=== PATIENT | male | born 1945 | race Caucasian/White ===

== ENCOUNTER → 2017-08-21 | Outpatient (CLI) | payer MEDICARE, OTHER ==
[2017-08-21 11:03] LABS: ADD MAN DIFF? NO
[2017-08-21 11:07] LABS: BASO % 1 % (0-3); EOS # 0.4 x10^3/uL (0.0-0.7); EOS % 5 % (0-3); LYMPH # 1.4 x10^3/uL (1.0-4.8); LYMPH % 19 % (24-48); MEAN CORPUSCULAR HEMOGLOBIN 28 pg (25-35); MEAN CORPUSCULAR HGB CONC 34 g/dL (31-37); MEAN CORPUSCULAR VOLUME 83 fL (79-100); MONO # 0.5 x10^3/uL (0.0-1.1); MONO % 8 % (0-9); NEUT # 4.9 x10^3uL (1.8-7.7); NEUT % 67 % (31-73); PLATELET COUNT 178 x10^3/uL (140-400); RED BLOOD COUNT 5.63 x10^6/uL (4.30-5.70); RED CELL DISTRIBUTION WIDTH 14.4 % (11.5-14.5); WHITE BLOOD COUNT 7.2 x10^3/uL (4.0-11.0)
[2017-08-21 11:19] LABS: PARTIAL THROMBOPLASTIN TIME 29 SEC (24-38); PROTHROMBIN TIME PATIENT 12.5 SEC (11.7-14.0)
[2017-08-21 11:29] LABS: ALBUMIN 3.9 g/dL (3.4-5.0); ALBUMIN/GLOBULIN RATIO 1.4 (1.0-1.7); ALK PHOS 97 U/L (46-116); ALT (SGPT) 23 U/L (16-63); ANION GAP 5 (6-14); AST (SGOT) 13 U/L (15-37); BLOOD UREA NITROGEN 17 mg/dL (8-26); BUN/CREATININE RATIO 17 (6-20); CALCIUM 9.2 mg/dL (8.5-10.1); CARBON DIOXIDE 29 mmol/L (21-32); CHLORIDE 107 mmol/L (98-107); GFR 73.9; GLUCOSE 97 mg/dL (70-99); POTASSIUM 4.2 mmol/L (3.5-5.1); SODIUM 141 mmol/L (136-145); TOTAL BILIRUBIN 0.5 mg/dL (0.2-1.0); TOTAL PROTEIN 6.7 g/dL (6.4-8.2)
[2017-08-21 22:11] LABS: MRSA BY PCR Negative (Negative)
== END | disposition home or self-care (01) ==
LOC: SURGPAT 10:28
DX: Z01.818 Encounter for other preprocedural examination (principal); M48.061 Spinal stenosis, lumbar region without neurogenic claudication; M54.16 Radiculopathy, lumbar region
CPT/HCPCS: 36415; 80053; 85025; 85610; 85730; 87641; 93005

== ENCOUNTER 2017-08-28 07:42 | Inpatient (IN) | payer MEDICARE ==
[~2017-08-28 07:42] MED LIST: BACITRACIN 50,000 UNIT in IV NORMAL SALINE 1000ML BAG 1,000 ML IRR; BUPIVAC MPF-EPI 0.5%-1:200000 30 ML VIAL. INJ; LIDOCAINE 1% PF 2 ML VIAL. ID; MORPHINE SULFATE 2 MG/ML DISP.SYRIN. IV; ONDANSETRON PF 4 MG/2 ML VIAL. IV; PROCHLORPERAZINE 10 MG/2 ML VIAL. IV; fentaNYL PF VIAL 100 MCG/2 ML VIAL IV
[2017-08-28] MEDS ORDERED: SCOPOLAMINE 1.5MG PATCH. TD (08:14)
[2017-08-28] MEDS: IV RINGERS,LACTATED 1000ML 1,000 ML IV (08:18)
[2017-08-28] MEDS: SCOPOLAMINE 1.5MG PATCH. TD (08:20)
[2017-08-28] MEDS ORDERED: REMIFENTANIL 2 MG VIAL. IV (10:20)
[2017-08-28] MEDS ORDERED: ROCURONIUM 50 MG/5 ML VIAL. (10:20)
[2017-08-28] MEDS ORDERED: fentaNYL PF VIAL 250 MCG/5 ML VIAL (10:21)
[2017-08-28] MEDS ORDERED: MINERAL OIL/PETROLATUM,WHITE OPHTH OINT 3.5GM TUBE. ×3 (10:21)
[2017-08-28] MEDS ORDERED: PHENYLEPHRINE 10 MG/ML VIAL. ×2 (10:21→10:22)
[2017-08-28] MEDS ORDERED: PROPOFOL 20 ML IV (10:22)
[2017-08-28] MEDS ORDERED: DEXAMETHASONE SOD PHOS 20 MG/5 ML VIAL. (10:22)
[2017-08-28] MEDS ORDERED: ONDANSETRON PF 4 MG/2 ML VIAL. (10:22)
[2017-08-28] MEDS ORDERED: PROPOFOL 50 ML IV ×2 (10:22→14:23)
[2017-08-28] MEDS ORDERED: LIDOCAINE 2% PF Vial for OR 5 ML VIAL. (10:22)
[2017-08-28] MEDS: VANCOMYCIN 1GM IVPB FOR OMNI 250 ML IV (11:27)
[2017-08-28] MEDS: BUPIVAC MPF-EPI 0.5%-1:200000 30 ML VIAL. INJ (12:05)
[2017-08-28] MEDS: BACITRACIN 50,000 UNIT in IV NORMAL SALINE 1000ML BAG 1,000 ML IRR (12:05)
[2017-08-28] MEDS: KETOROLAC 60 MG/2 ML INJ FOR OR. (12:05)
[2017-08-28] MEDS: THROMBIN TOPICAL 20,000 UNIT SPRAY.SYRN KIT TP (12:05)
[2017-08-28] MEDS: GELATIN SPONGE SIZE 100. (12:05)
[2017-08-28] MEDS ORDERED: GLYCOPYRROLATE 1 MG/5 ML VIAL. (12:09)
[2017-08-28] MEDS ORDERED: ePHEDrine PF IN SALINE 50 MG/5 ML DISP.SYRIN IV (12:11)
[2017-08-28] MEDS ORDERED: THROMBIN TOPICAL 20,000 UNIT SPRAY.SYRN KIT TP (13:57)
[2017-08-28] MEDS ORDERED: REMIFENTANIL 1 MG VIAL. IV (14:22)
[2017-08-28] MEDS ORDERED: NEOSTIGMINE METHYLSULFATE 5 MG/5 ML SYRINGE. (15:17)
[2017-08-28] MEDS ORDERED: SEVOFLURANE > 120 MINUTES. IH (15:20)
[2017-08-28] MEDS: POTASSIUM CL 20MEQ D5-0.45NACL 1,000 ML IV (16:06)
[2017-08-28] MEDS ORDERED: diphenhydrAMINE HCL 25 MG CAPSULE PO (16:15)
[2017-08-28] MEDS ORDERED: ONDANSETRON PF 4 MG/2 ML VIAL. IV (16:15)
[2017-08-28] MEDS ORDERED: fentaNYL PF VIAL 100 MCG/2 ML VIAL IV (16:15)
[2017-08-28] MEDS ORDERED: MAGNESIUM HYDROXIDE 2,400 MG/30 ML ORAL.SUSP. PO (16:15)
[2017-08-28] MEDS ORDERED: 0.9 % SODIUM CHLORIDE 10 ML DISP.SYRIN. IV (16:15)
[2017-08-28] MEDS ORDERED: CALCIUM CARBONATE 500 MG TAB.CHEW PO (16:15)
[2017-08-28] MEDS ORDERED: MAG HYDROX/ALUMINUM HYD/SIMETH 30 ML ORAL.SUSP PO (16:15)
[2017-08-28] MEDS ORDERED: oxyCODONE/APAP 5/325 1 TAB TABLET PO (16:15)
[2017-08-28] MEDS ORDERED: ACETAMINOPHEN 325 MG TABLET. PO (16:15)
[2017-08-28] MEDS ORDERED: diphenhydrAMINE 50 MG/ML VIAL IV (16:15)
[2017-08-28] MEDS: fentaNYL PF VIAL 100 MCG/2 ML VIAL IV ×3 (16:28→19:23)
[2017-08-28] MEDS: oxyCODONE/APAP 5/325 1 TAB TABLET PO ×2 (17:47→23:25)
[2017-08-28] MEDS: TAMSULOSIN 0.4 MG CAP.ER.24H. PO (20:48)
[2017-08-28] MEDS: ATORVASTATIN CALCIUM 10 MG TABLET. PO (20:49)
[2017-08-28] MEDS: METHOCARBAMOL 750 MG TABLET PO (20:49)
[2017-08-28] MEDS: FINASTERIDE 5 MG TABLET. PO (20:49)
[2017-08-28] MEDS: LISINOPRIL 10 MG TABLET PO (20:49)
[2017-08-28] MEDS: ASPIRIN ENTERIC COATED 81 MG TABLET.DR. PO (20:49)
[2017-08-28] MEDS: DOCUSATE SODIUM 100 MG CAPSULE. PO (20:50)
[2017-08-28] MEDS: GUANFACINE HCL 2 MG PO (20:54)
[2017-08-28] MEDS: VANCOMYCIN 1 GM in IV NORMAL SALINE 250ML 250 ML IV (23:20)
[2017-08-29] MEDS: oxyCODONE/APAP 5/325 1 TAB TABLET PO ×2 (07:44→12:28)
[2017-08-29] MEDS: METHOCARBAMOL 750 MG TABLET PO (08:41)
[2017-08-29] MEDS: DOCUSATE SODIUM 100 MG CAPSULE. PO (08:42)
[2017-08-29] MEDS ORDERED: PHENAZOPYRIDINE 200 MG TABLET. PO (13:30)
[2017-08-29] MEDS ORDERED: TAMSULOSIN 0.4 MG CAP.ER.24H. PO (21:00)
== END 2017-08-29 14:45 | disposition home or self-care (01) | DRG 460 ==
LOC: OPSVCIP 07:42 → 4 SOUTHEST 16:55
PROC: 0SG3071 Fusion of Lumbosacral Joint with Autologous Tissue Substitute, Posterior Approach, Posterior Column, Open Approach (ICD-10-PCS; principal; 2017-08-28 10:30)
PROC: 0SB40ZZ Excision of Lumbosacral Disc, Open Approach (ICD-10-PCS; 2017-08-28 10:30)
PROC: 07DR3ZZ Extraction of Iliac Bone Marrow, Percutaneous Approach (ICD-10-PCS; 2017-08-28 10:30)
PROC: 4A11X4G Monitoring of Peripheral Nervous Electrical Activity, Intraoperative, External Approach (ICD-10-PCS; 2017-08-28 10:30)
DX: M48.061 Spinal stenosis, lumbar region without neurogenic claudication (principal); M54.16 Radiculopathy, lumbar region; N40.1 Benign prostatic hyperplasia with lower urinary tract symptoms; Z96.652 Presence of left artificial knee joint; R33.8 Other retention of urine; I10 Essential (primary) hypertension; Z88.8 Allergy status to other drugs, medicaments and biological substances; G43.909 Migraine, unspecified, not intractable, without status migrainosus; M19.90 Unspecified osteoarthritis, unspecified site
CPT/HCPCS: 36415; 72131; 76000; 86850; 86900; 86901; 97116-GP; 97162-GP; 97530-GP; A7015; C1713; G8978-CI-GP; G8979-CI-GP; G8980-CI-GP; J1100; J1885; J2001; J2405; J2704; J2710; J3010; J3370; J3490; J7030; J7050; J7120

== ENCOUNTER → 2020-01-20 | Outpatient (CLI) | payer MEDICARE, OTHER ==
[2017-08-29 11:00] VITALS: BP 154/66
[~2020-01-20] MED LIST changes: +ASPI-886 PO; -BACITRACIN 50,000 UNIT in IV NORMAL SALINE 1000ML BAG 1,000 ML IRR; -BUPIVAC MPF-EPI 0.5%-1:200000 30 ML VIAL. INJ; +DOCU-109 PO; +FINA5TAB4 PO; +GUAN1TAB PO; +HYDR-3135 PO; +IBUP-1060 PO; +IOHEXOL 180 MG/ML 10 ML VIAL. IT ONE; +LIDOCAINE 1% Multi-Dose 20 ML VIAL. ID ONE; -LIDOCAINE 1% PF 2 ML VIAL. ID; +LISI10TA2 PO; -MORPHINE SULFATE 2 MG/ML DISP.SYRIN. IV; +NAPR220T70 PO; -ONDANSETRON PF 4 MG/2 ML VIAL. IV; +OXYC1TAB7 PO; +PRAV40TA2 PO; -PROCHLORPERAZINE 10 MG/2 ML VIAL. IV; +TAMS0.4C2 PO; -fentaNYL PF VIAL 100 MCG/2 ML VIAL IV
--- NOTE | 2020-01-20 12:41 | KCIC ---
Lumbar myelogram 01/20/2020 Clinical History: Low back pain which radiates down the left leg. History of previous lumbar spine surgeries. Technique: After the risks and benefits of the procedure were explained to the patient, written informed consent was obtained. The patient was placed prone on the fluoroscopy table and the lower back was prepped and draped in sterile fashion. 1% lidocaine was used as a local anesthetic. Under fluoroscopic guidance, the thecal sac of the lumbar cistern was punctured at the L3-4 level using 25-gauge Lizzy needle. After confirming clear CSF return, 15 cc of Omnipaque 180 were injected through the needle into the thecal sac of the lumbar cistern under fluoroscopic guidance. Following this the needle was removed and hemostasis achieved at the puncture site. A sterile bandage was placed on the skin puncture site. AP, bilateral oblique, lateral and standing neutral, flexion and extension lateral digital radiographs of the lumbar spine were obtained. Following this the patient was taken to CT where a CT scan of the lumbar spine was performed. This will be reported separately. Following the examinations the patient was sent home with an instruction sheet. The patient tolerated the procedure well and there were no immediate complications. The total fluoroscopic time for this procedure was 1 minute 17 seconds. 10 digital spot radiographs of the lumbar spine were obtained. Findings: Very mild S-shaped curvature of the thoracolumbar spine is seen. There is straightening of the normal lumbar lordosis. The patient is post discectomy and fusion using pedicle screws, stabilizing rods and bone graft material at L2-3. The patient is post posterolateral fusion using pedicle screws and stabilizing rods at L5-S1. Marked disc space narrowing is seen at L1-2, L3-4, L4-5 and L5-S1. Degenerative changes consisting of vertebral endplate sclerosis and mild to moderate anterior vertebral body osteophyte formation are seen at these levels. Prominent posterior osteophyte formation is seen at the L1-2 disc space which results in moderate anterior extradural defects upon the contrast column. Mild anterior extradural defects are seen upon the contrast column at L3-4 and L4-5 and mild to moderate anterior and posterior extradural defects are seen upon the contrast column at L5-S1. There is no evidence of complete block of contrast at any level involving the lumbar spine. The alignment of the lumbar vertebrae is maintained on the flexion and extension radiographs. IMPRESSION: 1. Post fusion at L2-3 and L5-S1. 2. Degenerative changes are seen throughout the lumbar spine resulting in moderate anterior extradural defect upon the contrast column at L1-2, mild anterior extradural defects upon the contrast column at L3-4 and L4-5 and mild to moderate anterior and posterior extradural defects upon the contrast column at L5-S1. Electronically signed by: Seth Mead MD (01/20/2020 12:38 PM) [id number]
--- NOTE | 2020-01-20 12:58 | KCIC ---
CT lumbar myelogram 01/20/2020 Clinical History: Low back pain which radiates down the left leg. History of previous lumbar spine surgeries. Technique: This study was performed after a lumbar myelogram, contiguous, 0.625 mm axial sections were obtained through the lumbar spine. 3 mm sagittal, coronal and axial reconstructed images were obtained. One or more of the following individualized dose reduction techniques were utilized for this study: 1. Automated exposure control. 2. Adjustment of the mA and/or kV according to patient size. 3. Use of iterative reconstruction technique. Findings: Comparison is made to the patient's outside MRI of the lumbar spine dated 12/20/2019 .. Additional comparison is made to the patient's lumbar myelogram performed earlier today. The sagittal and coronal reconstructed images demonstrate very mild S-shaped curvature of the thoracolumbar spine. There is straightening of the normal lumbar lordosis. The patient is post right hemilaminotomy, discectomy and fusion using pedicle screws, stabilizing rods and bone graft material at L2-3. The patient is post laminectomy at L3-4 and L4-5. The patient is post right hemilaminotomy and posterolateral fusion using pedicle screws and stabilizing rods at L5-S1. Marked disc space narrowing and vacuum disc phenomenon are seen at L1-2 and L5-S1. Moderate anterior and posterior vertebral body osteophyte formation are seen at these levels. Marked disc space narrowing and partial bony fusion across the L3-4 and L4-5 disc spaces is noted. Previous pedicle screw tracts are seen involving the L4 vertebrae. On the axial images at the L1-2 disc space there is a moderate generalized disc bulge. Superimposed on the disc bulge is a focal cental disc osteophyte complex which extends along the entirety of the anterior epidural space. This measures 6 mm in AP diameter. An additional superimposed left lateral focal disc protrusion which extrudes superiorly is seen. This contains air on the CT scan and measures 4 mm in AP diameter. Degenerative changes are seen involving the facet joints bilaterally. There is moderate ligamentum flavum hypertrophy bilaterally. These findings result in severe central spinal canal stenosis. Mild to moderate left greater than right neural foraminal stenosis is seen. At the L2-3 level degenerative changes are seen involving the facet joints bilaterally. These findings do not result in significant central spinal canal or neural foraminal stenosis. At the L3-4 level degenerative changes are seen involving the facet joints, right greater than left. These findings do not result in significant central spinal canal stenosis. Mild right neural foraminal stenosis is seen. The left neural foramen is patent. At the L4-5 level degenerative changes are seen involving the facet joints bilaterally. Posterior vertebral body osteophyte formation is seen. These findings do not result in significant central spinal canal stenosis. Mild to moderate bilateral neural foraminal stenosis is seen. At the L5-S1 level posterior vertebral body osteophyte formation is noted. Degenerative changes are seen involving the facet joints bilaterally. These findings do not result in significant central spinal canal stenosis. Moderate to severe left greater than right neural foraminal stenosis is seen. IMPRESSION: 1. Postsurgical changes are seen as discussed above. 2. The changes of degenerative disc disease are seen throughout the lumbar spine. These findings result in severe central spinal canal stenosis at L1-2. Mild to moderate left greater than right neural foraminal stenosis is seen at L1-2. Mild right neural foraminal stenosis is seen at L3-4. Mild to moderate bilateral neural foraminal stenosis is seen at L4-5. Moderate to severe left greater than right neural foraminal stenosis is seen at L5-S1. Electronically signed by: Seth Mead MD (01/20/2020 12:55 PM) [id number]
== END | disposition home or self-care (01) ==
LOC: KCIC 08:40
PROVIDERS: ATTEND Neurological Surgery
DX: M51.16 Intervertebral disc disorders with radiculopathy, lumbar region (principal); M48.061 Spinal stenosis, lumbar region without neurogenic claudication; M25.78 Osteophyte, vertebrae; I10 Essential (primary) hypertension; E78.00 Pure hypercholesterolemia, unspecified; M19.90 Unspecified osteoarthritis, unspecified site; N40.0 Benign prostatic hyperplasia without lower urinary tract symptoms; Z79.899 Other long term (current) drug therapy; Z79.82 Long term (current) use of aspirin; Z98.890 Other specified postprocedural states; Z87.891 Personal history of nicotine dependence; Z88.0 Allergy status to penicillin; Z91.013 Allergy to seafood; Z88.8 Allergy status to other drugs, medicaments and biological substances; Z82.49 Family history of ischemic heart disease and other diseases of the circulatory system; Z80.0 Family history of malignant neoplasm of digestive organs
CPT/HCPCS: 62304; 72132; J3490; Q9965

== ENCOUNTER → 2020-01-29 | Outpatient (CLI) | payer MEDICARE, OTHER ==
[2017-08-29 11:00] VITALS: BP 154/66
[~2020-01-29] MED LIST changes: +GABA-689 PO; +HYDR-2769 PO; -IOHEXOL 180 MG/ML 10 ML VIAL. IT ONE; -LIDOCAINE 1% Multi-Dose 20 ML VIAL. ID ONE; +METH750T2 PO; +OXYC1TAB15 PO
--- NOTE | 2020-01-29 09:04 | HP ---
ADMIT DATE: 01/29/2020 PREOPERATIVE HISTORY AND PHYSICAL Shree Pastor dictating for Dr. Edenilson Fu. DATE OF SURGERY: 02/03/2020. HISTORY OF PRESENT ILLNESS: The patient is a pleasant 74-year-old who has difficulty with pain in his lower back, which radiates to his left buttock and left posterior thigh. That pain is relatively severe. Standing and walking increases his pain. He notes the pins and needle sensation in both of his feet. That started 3-4 months ago. In the past, he has undergone a total of six spine surgeries. PAST MEDICAL HISTORY: Arthritis, cold sores and fever blisters, headaches or migraines, hypertension and tonsillitis. PAST SURGICAL HISTORY: Partial left knee replacement in 2014, a cervical spine surgery in 2007. Five lumbar surgeries between 1989 and 2009, microdiskectomy L5-S1 with fusion in 08/2017. FAMILY HISTORY: Cancer. SOCIAL HISTORY: He exercises daily. Denies substance abuse. Denies tobacco use. Drinks coffee and tea daily. ALLERGIES: PENICILLIN AND SHELLFISH. CURRENT MEDICATIONS: He is taking guanfacine, lisinopril, fenofibrate, pravastatin sodium, finasteride, tamsulosin, aspirin, and Aleve. REVIEW OF SYSTEMS: A 12-point review of systems was obtained and is noncontributory except that mentioned above. PHYSICAL EXAMINATION: NEUROSURGERY EXAMINATION: GENERAL APPEARANCE: Alert, pleasant, in no acute distress. HEAD: Normocephalic and atraumatic. SKIN: Warm and dry, lumbar incision well healed. MUSCULOSKELETAL: Lumbar paraspinal muscle bulk is normal, restricted range of motion of the lumbar spine, [id number] tenderness of the lower lumbar spine with palpation, normal range of motion of the lower extremities bilaterally. EXTREMITIES: No clubbing, cyanosis or edema. NEUROLOGIC: Alert and oriented x 3, normal recent and remote memory. Strength 5/5 in bilateral lower extremities, sensory was intact to light touch in lower extremities bilaterally, reflexes are trace and symmetric in bilateral lower extremities, positive straight leg raising on the left, negative straight leg raising on the right, normal gait. IMAGING: Reviewed. I reviewed a lumbar myelogram. There are a number of abnormalities. There is a significant stenosis at L1-L2 above his previous fusion. There appears to be calcified disk herniation combined with hypertrophic ligamentum flavum. At L5-S1, which is the level he had an instrumented fusion, he has developed significant left-sided lateral recess and neural foraminal narrowing. There are postoperative changes on the right side at that level. ASSESSMENT: 1. Radiculopathy, lumbosacral region. 2. Arthrodesis status. 3. Spinal stenosis, lumbar region with neurogenic claudication. PLAN: The patient does have significant stenosis at L1-L2, I do believe the current problems are related to the lateral recess and foraminal narrowing at L5-S1 on the left. My recommendation is to proceed with surgery at that level to remove hardware decompress at the foraminal opening at that level, combined with interbody fusion and then reinstrumentation and fusing him. He understands. He would like to proceed. We will make the arrangements. EDENILSON FU MD DR: BOGDAN/eunice JOB#: [id number] / [id number]
--- NOTE | 2020-01-29 13:19 | EKG ---
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
[2020-01-29 13:23] LABS: BASO # 0.1 x10^3/uL (0.0-0.2); BASO % 1 % (0-3); EOS # 0.2 x10^3/uL (0.0-0.7); EOS % 2 % (0-3); HEMATOCRIT 48.5 % (39.0-53.0); HEMOGLOBIN 16.8 g/dL (13.0-17.5); LYMPH # 1.5 x10^3/uL (1.0-4.8); LYMPH % 16 % (24-48); MEAN CORPUSCULAR HEMOGLOBIN 30 pg (25-35); MEAN CORPUSCULAR HGB CONC 35 g/dL (31-37); MEAN CORPUSCULAR VOLUME 86 fL (79-100); MONO # 0.6 x10^3/uL (0.0-1.1); MONO % 7 % (0-9); NEUT # 7.1 x10^3/uL (1.8-7.7); NEUT % 74 % (31-73); PLATELET COUNT 175 x10^3/uL (140-400); RED BLOOD COUNT 5.65 x10^6/uL (4.30-5.70); RED CELL DISTRIBUTION WIDTH 14.4 % (11.5-14.5); WHITE BLOOD COUNT 9.5 x10^3/uL (4.0-11.0)
[2020-01-29 13:44] LABS: ALBUMIN 3.8 g/dL (3.4-5.0); ALBUMIN/GLOBULIN RATIO 1.3 (1.0-1.7); CALCIUM 9.5 mg/dL (8.5-10.1); GFR 73.2; POTASSIUM 4.5 mmol/L (3.5-5.1); TOTAL BILIRUBIN 0.5 mg/dL (0.2-1.0); TOTAL PROTEIN 6.7 g/dL (6.4-8.2)
== END ==
LOC: SURGPAT 12:26
PROVIDERS: ATTEND Neurological Surgery
DX: Z01.812 Encounter for preprocedural laboratory examination (principal); M54.17 Radiculopathy, lumbosacral region; M48.062 Spinal stenosis, lumbar region with neurogenic claudication; Z98.1 Arthrodesis status; Z20.828 Contact with and (suspected) exposure to other viral communicable diseases
CPT/HCPCS: 80053; 85025; 85610; 85730; 87641; 93005; U0003